=== PATIENT | female | born 1990 | race Caucasian/White ===

== ENCOUNTER 2022-01-21 20:57 | Emergency (ER) | payer BC ==
[2022-01-21 21:50] LABS: HEMOGLOBIN 12.9 gm/dl (12.3-15.3); RED BLOOD COUNT 4.69 M/UL (4.00-5.10); WHITE BLOOD COUNT 9.4 K/UL (4.5-11.0)
[2022-01-21 22:09] LABS: BUN/CREATININE RATIO 10 (0-10)
[2022-01-22] MEDS ORDERED: ZOFRAN ODT 4 MG4 MG PO (00:48)
[2022-01-22] MEDS ORDERED: MACROBID 100 M100 MG PO (00:48)
== END 2022-01-22 00:55 | disposition home or self-care (01) ==
LOC: ER1 20:57
PROVIDERS: Family Medicine
DX: R82.81 Pyuria (principal); Z88.0 Allergy status to penicillin; Z20.822 Contact with and (suspected) exposure to COVID-19
CPT/HCPCS: 80053; 81001; 83690; 84703; 85025; 96374; 96375; 99284; J1885; J2405; U0002